=== PATIENT | female | born 1965 | race Caucasian/White ===

== ENCOUNTER 2022-10-14 12:40 | Emergency (ER) | payer OTHER ==
[~2022-10-14] VITALS: Ht 170.2 cm; Wt 58.9 kg
[2022-10-14 12:47] VITALS: BP 141/78
[2022-10-14 13:00] VITALS: BP 115/68
[2022-10-14] MEDS ORDERED: VIIBRYD10 MG PO (13:07)
[2022-10-14 13:08] VITALS: BP 115/68
[2022-10-14] MEDS ORDERED: AMOX/K CLAV875 M1 PO (13:12)
[2022-10-14] MEDS ORDERED: CHERATUSSIN PO (13:12)
== END 2022-10-14 13:51 | disposition home or self-care (01) | DRG 153 ==
LOC: ED 12:40
DX: H66.92 Otitis media, unspecified, left ear (principal); J01.90 Acute sinusitis, unspecified; R05.9 Cough, unspecified